=== PATIENT | female | born 1945 | race Caucasian/White ===

== ENCOUNTER 2017-03-06 14:30 | Outpatient (CLI) | payer OTHER | END 2017-03-06 19:32 | disposition home or self-care (01) | LOC: SMA 14:30 | PROVIDERS: ATTEND Family Medicine | DX: Z12.31 Encounter for screening mammogram for malignant neoplasm of breast (principal) | CPT/HCPCS: G0202 ==

== ENCOUNTER 2018-04-30 14:29 | Outpatient (CLI) | payer OTHER | END 2018-04-30 19:33 | disposition home or self-care (01) | LOC: SMA 14:29 | DX: Z12.31 Encounter for screening mammogram for malignant neoplasm of breast (principal) | CPT/HCPCS: 77067 ==

== ENCOUNTER 2019-06-02 15:18 | Outpatient (CLI) | payer OTHER | END 2019-06-02 21:28 | disposition home or self-care (01) | LOC: SRD 15:18 | DX: Z12.31 Encounter for screening mammogram for malignant neoplasm of breast (principal) | CPT/HCPCS: 77067 ==

== ENCOUNTER 2020-07-18 15:45 | Outpatient (CLI) | payer OTHER | END 2020-07-18 20:05 | disposition home or self-care (01) | LOC: SMA 15:45 | PROVIDERS: ATTEND Family Medicine | DX: Z12.31 Encounter for screening mammogram for malignant neoplasm of breast (principal) | CPT/HCPCS: 77067 ==